=== PATIENT | male | born 1940 ===

== ENCOUNTER 2024-07-12 08:45 | Day surgery (SDC) | payer OTHER ==
[2024-07-12] MEDS: ACETAMINOPHEN 325 MG TABLET (FP) PO ONE (09:11)
[2024-07-12] MEDS: DIPHENHYDRAMINE 50 MG in SODIUM CHLORIDE 50 ML IVPB ONE (09:13)
[2024-07-12] MEDS: SODIUM CHLORIDE 250 ML IV ONE (09:13)
[2024-07-12] MEDS: RITUXIMAB PVVR IVPB ONE (09:55)
[2024-07-12] MEDS: SODIUM CHLORIDE IVPB ONE (09:55)
[2024-07-12 15:10] VITALS: BP 126/57; PULSE 80; RESP 18; TEMP 99
== END 2024-07-12 14:35 | disposition home or self-care (01) ==
LOC: JONCCHEMO 08:45 → J7W 08:45 → JONCCHEMO 14:35
PROVIDERS: ATTEND Internal Medicine Hematology & Oncology
PROC: 3E03305 Introduction of Other Antineoplastic into Peripheral Vein, Percutaneous Approach (ICD-10-PCS; principal; 2024-07-12)
PROC: 3E0333Z Introduction of Anti-inflammatory into Peripheral Vein, Percutaneous Approach (ICD-10-PCS; 2024-07-12)
DX: Z51.11 Encounter for antineoplastic chemotherapy (principal); C88.00 Waldenstrom macroglobulinemia not having achieved remission
CPT/HCPCS: 96375; 96413; 96415; Q5119

== ENCOUNTER 2024-07-19 08:57 | Day surgery (SDC) | payer OTHER ==
[2024-07-19 09:37] LABS: BASO % 0.5 % (0-2.0); EOS % 9.8 % (0-4.5); HEMATOCRIT 28.5 % (35.4-49); HEMOGLOBIN 9.2 GM/dL (11.7-16.9); LYMPH % 22.7 % (8-40); MCH 29.3 pg (25.7-33.7); MCHC 32.4 g/dl (32.0-35.9); MEAN CELL VOLUME 90.5 fl (80-96); MEAN PLT VOLUME 7.8 fl (7.5-11.1); MONO % 15.3 % (3.8-10.2); NEUT % 51.7 % (42.8-82.8); PLATELET COUNT 317 10^3/uL (134-434); RBC 3.15 M/mm3 (4.00-5.60); RDW 15.8 % (11.9-15.9); WHITE BLOOD COUNT 3.6 K/mm3 (4.0-10.0)
[2024-07-19 10:27] LABS: CHLORIDE 101 mmol/L (98-107); POTASSIUM 4.2 mmol/L (3.5-5.1); SODIUM 134 mmol/L (136-145)
[2024-07-19 10:29] LABS: ALBUMIN 3.2 g/dl (3.4-5.0); CALCIUM 9.3 mg/dL (8.5-10.1)
[2024-07-19] MEDS: SODIUM CHLORIDE 250 ML IV ONE (10:30)
[2024-07-19 10:31] LABS: ANION GAP 3 mmol/L (4-13); CO2 31 mmol/L (21-32); GLUCOSE,RANDOM 102 mg/dL (74-106)
[2024-07-19 10:32] LABS: SGOT/AST 12 U/L (15-37); SGPT/ALT 16 U/L (13-61)
[2024-07-19 10:33] LABS: CREATININE 0.9 mg/dL (0.55-1.3)
[2024-07-19 10:34] LABS: BILIRUBIN,TOTAL 0.4 mg/dL (0.2-1); TOT PROT 10.2 g/dl (6.4-8.2)
[2024-07-19 10:35] LABS: ALK PHOS 84 U/L (45-117)
[2024-07-19 10:44] LABS: BILIRUBIN,DIRECT 0.1 mg/dL (0.0-0.2)
[2024-07-19] MEDS: DIPHENHYDRAMINE 50 MG in SODIUM CHLORIDE 50 ML IVPB ONE (11:16)
[2024-07-19] MEDS: ACETAMINOPHEN 325 MG TABLET (FP) PO ONE (11:17)
[2024-07-19 11:54] LABS: LDH 146 U/L (87-246)
[2024-07-19] MEDS: SODIUM CHLORIDE IVPB ONE (11:56)
[2024-07-19] MEDS: RITUXIMAB PVVR IVPB ONE (11:56)
[2024-07-19 15:34] VITALS: BP 120/60; PULSE 72; RESP 18; TEMP 97.6
== END 2024-07-19 14:40 | disposition home or self-care (01) ==
LOC: JONCCHEMO 08:57 → J7W 08:58 → JONCCHEMO 14:40
PROVIDERS: ATTEND Internal Medicine Hematology & Oncology
PROC: 3E03305 Introduction of Other Antineoplastic into Peripheral Vein, Percutaneous Approach (ICD-10-PCS; principal; 2024-07-19)
PROC: 3E033GC Introduction of Other Therapeutic Substance into Peripheral Vein, Percutaneous Approach (ICD-10-PCS; 2024-07-19)
DX: Z51.11 Encounter for antineoplastic chemotherapy (principal); C88.00 Waldenstrom macroglobulinemia not having achieved remission
CPT/HCPCS: 36415; 80048; 80076; 83615; 85025; 86705; 86707; 86708; 87350; 87517; 96365; 96413; 96415; Q5119

== ENCOUNTER 2024-07-26 08:40 | Day surgery (SDC) | payer OTHER ==
[2024-07-26 09:13] LABS: BASO % 0.2 % (0-2.0); EOS % 3.2 % (0-4.5); HEMATOCRIT 26.8 % (35.4-49); LYMPH % 12.3 % (8-40); MCH 29.8 pg (25.7-33.7); MCHC 33.6 g/dl (32.0-35.9); MEAN CELL VOLUME 88.7 fl (80-96); MEAN PLT VOLUME 7.1 fl (7.5-11.1); MONO % 11.3 % (3.8-10.2); PLATELET COUNT 274 10^3/uL (134-434); RBC 3.02 M/mm3 (4.00-5.60); RDW 15.5 % (11.9-15.9); WHITE BLOOD COUNT 6.3 K/mm3 (4.0-10.0)
[2024-07-26 09:25] LABS: CHLORIDE 100 mmol/L (98-107); SODIUM 135 mmol/L (136-145)
[2024-07-26 09:27] LABS: ANION GAP 3 mmol/L (4-13); BLOOD UREA NITROGEN 15.6 mg/dL (7-18); CALCIUM 9.1 mg/dL (8.5-10.1); CO2 33 mmol/L (21-32); GLUCOSE,RANDOM 106 mg/dL (74-106)
[2024-07-26 09:30] LABS: ALBUMIN 3.2 g/dl (3.4-5.0); CREATININE 0.9 mg/dL (0.55-1.3)
[2024-07-26 09:35] LABS: BILIRUBIN,TOTAL 0.6 mg/dL (0.2-1); TOT PROT 9.6 g/dl (6.4-8.2)
[2024-07-26 09:37] LABS: BILIRUBIN,DIRECT 0.2 mg/dL (0.0-0.2)
[2024-07-26] MEDS: SODIUM CHLORIDE 250 ML IV ONE (10:31)
[2024-07-26] MEDS: ACETAMINOPHEN 325 MG TABLET (FP) PO ONE (10:32)
[2024-07-26] MEDS: DIPHENHYDRAMINE 50 MG in SODIUM CHLORIDE 50 ML IVPB ONE (10:32)
[2024-07-26] MEDS: SODIUM CHLORIDE IVPB ONE (11:32)
[2024-07-26] MEDS: RITUXIMAB PVVR IVPB ONE (11:32)
[2024-07-26 16:00] VITALS: BP 127/62; PULSE 65; RESP 20; TEMP 98.7
== END 2024-07-26 14:20 | disposition home or self-care (01) ==
LOC: JONCCHEMO 08:40
PROVIDERS: ATTEND Internal Medicine Hematology & Oncology
DX: Z51.11 Encounter for antineoplastic chemotherapy (principal); C88.00 Waldenstrom macroglobulinemia not having achieved remission
CPT/HCPCS: 36415; 80048; 80076; 83615; 85025; 96367; 96413; 96415; Q5119

== ENCOUNTER 2024-08-02 08:42 | Day surgery (SDC) | payer OTHER ==
[2024-08-02] MEDS: SODIUM CHLORIDE 250 ML IV ONE (09:15)
[2024-08-02 09:37] LABS: BASO % 0.6 % (0-2.0); EOS % 9.1 % (0-4.5); HEMATOCRIT 27.3 % (35.4-49); HEMOGLOBIN 8.7 GM/dL (11.7-16.9); MCH 28.7 pg (25.7-33.7); MCHC 31.8 g/dl (32.0-35.9); MEAN CELL VOLUME 90.5 fl (80-96); MEAN PLT VOLUME 7.4 fl (7.5-11.1); MONO % 13.9 % (3.8-10.2); NEUT % 47.4 % (42.8-82.8); PLATELET COUNT 297 10^3/uL (134-434); RBC 3.02 M/mm3 (4.00-5.60); RDW 15.8 % (11.9-15.9); WHITE BLOOD COUNT 3.7 K/mm3 (4.0-10.0)
[2024-08-02 09:59] LABS: CHLORIDE 104 mmol/L (98-107); POTASSIUM 4.3 mmol/L (3.5-5.1); SODIUM 137 mmol/L (136-145)
[2024-08-02 10:01] LABS: BLOOD UREA NITROGEN 28.8 mg/dL (7-18); CALCIUM 8.9 mg/dL (8.5-10.1)
[2024-08-02 10:02] LABS: ANION GAP 5 mmol/L (4-13); CO2 29 mmol/L (21-32); GLUCOSE,RANDOM 99 mg/dL (74-106)
[2024-08-02 10:04] LABS: CREATININE 0.9 mg/dL (0.55-1.3)
[2024-08-02 10:08] LABS: LDH 145 U/L (87-246)
[2024-08-02] MEDS: ACETAMINOPHEN 325 MG TABLET (FP) PO ONE (10:35)
[2024-08-02] MEDS: DIPHENHYDRAMINE 50 MG in SODIUM CHLORIDE 50 ML IVPB ONE (10:36)
[2024-08-02] MEDS: RITUXIMAB PVVR IVPB ONE (11:11)
[2024-08-02] MEDS: SODIUM CHLORIDE IVPB ONE (11:11)
[2024-08-02 14:05] VITALS: BP 111/60; PULSE 70; RESP 16
[2024-08-02 14:10] VITALS: TEMP 98.2
== END 2024-08-02 14:00 | disposition home or self-care (01) ==
LOC: JONCCHEMO 08:42 → J7W 08:43 → JONCCHEMO 14:00
PROVIDERS: ATTEND Internal Medicine Hematology & Oncology
DX: Z51.11 Encounter for antineoplastic chemotherapy (principal); C88.00 Waldenstrom macroglobulinemia not having achieved remission
CPT/HCPCS: 36415; 80048; 83615; 85025; 96413; 96415; Q5119